=== PATIENT | male | born 1990 | race Caucasian/White ===

== ENCOUNTER 2020-05-27 03:08 | Emergency (ER) | payer MEDICAID ==
[~2020-05-27] VITALS: Ht 172.7 cm; Wt 80.3 kg
[2020-05-27 03:14] VITALS: BP 130/79
== END 2020-05-27 04:17 | disposition home or self-care (01) ==
LOC: ER 03:11
DX: L55.0 Sunburn of first degree (principal); L29.9 Pruritus, unspecified